=== PATIENT | male | born 1990 | race Caucasian/White ===

== ENCOUNTER 2020-11-27 16:25 | Emergency (ER) | payer OTHER, SELFPAY ==
--- NOTE | ~2020-11-27 | XR_ITS ---
EXAMINATION: XR CHEST CLINICAL INFORMATION: Covid+. CHest pressure. Covid Pneumonia? COMPARISON: None TECHNIQUE: Frontal view of the chest was obtained. FINDINGS: No significant abnormality is noted involving the heart, lungs, mediastinum, bony thorax or soft tissues. XR/XR chest 1V IMPRESSION: Unremarkable examination. Covid groundglass infiltrates can be quite subtle and not well seen on chest radiographs.
[2020-11-27 17:04] VITALS: BP 150/92; PULSE 113; RESP 16; TEMP 37.3; O2SAT 97; BMI 22.9
--- NOTE | 2020-11-27 17:11 | ED.GENADULT ---
HPI - General Adult General Chief complaint: General Medical Stated complaint: Covid +/Fever Time Seen by Provider: 11/27/20 17:23 History of Present Illness HPI narrative: Patient is a 30 male past medical history IV drug abuse presents to ED for chest pressure and body aches. Patient been positive for COVID for 4 days. Patient denies any coughing. Patient states fever. Patient states girlfriend also positive. Related Data Previous Rx's Medication Instructions Recorded azithromycin 250 mg tablet 250 mg PO DAILY 6 Days #6 tab 11/27/20 benzonatate 100 mg capsule 100 mg PO TID PRN #15 cap 11/27/20 (Tessaljanet Hahn) Allergies Allergy/AdvReac Type Severity Reaction Status Date / Time No Known Allergies Allergy Verified 11/27/20 17:21 Review of Systems Review of Systems: Yes all other systems are reviewed and are negative Constitutional: Constitutional: Reports as per HPI, Reports no additional constitutional complaints, Reports body ache(s) and Reports fever(s) Eyes: Eyes: Reports as per HPI and Reports no additional eye complaints ENT: Reports system reviewed and no additional complaints, except as documented and Reports as per HPI Cardiovascular: Cardiovascular: Reports as per HPI, Reports no additional cardiovascular complaints and Reports chest pain Respiratory: Respiratory: Reports as per HPI and Reports no additional respiratory complaints Gastrointestinal: Gastrointestinal: Reports as per HPI and Reports no additional gastrointestinal complaints Musculoskeletal: Musculoskeletal: Reports no additional musculoskeletal complaints and Reports as per HPI Integumentary/Breasts: Skin/Breast: Reports system reviewed and no additional complaints, except as docu and Reports as per HPI FOR[facility]LY [facility], [facility] Social History Social History Advance Directives: No Advance Directives Information Provided: No Physical Exam Vital Signs: Vital Signs: Last Vital Signs Temp 99.2 F 11/27/20 19:51 Pulse 84 11/27/20 19:51 Resp 16 11/27/20 19:51 BP 148/92 H 11/27/20 19:51 Pulse Ox 99 11/27/20 19:51 Body Mass Index 22.9 Const: General: cooperative, healthy appearing, comfortable, no acute distress, well developed, alert, awake and Physically active Orientation/consciousness: patient oriented x3 HENMT: Head: Yes normal to inspection, Yes No palpable skull fracture present, Yes normocephalic, Yes atraumatic and No abrasion Eyes: General: appearance normal, both eyes and all related structures Neck: Neck: Yes normal visual inspection, Yes full ROM, Yes no lymphadenopathy, Yes no meningeal signs, Yes trachea midline, Yes supple and No tender Chest: Chest palpation & inspection: normal inspection of the chest and normal palpation of entire chest wall Resp: Effort & Inspection: normal respiratory effort and able to speak in complete sentences Cardio: Jugular venous distension: no JVD Heart sounds: S1 normal heart sound present and S2 normal heart sound present GI: Inspection: Yes normal to inspection and No abdominal wall ecchymosis Palpation (GI): Soft to palpation, not firm, nontender, no guarding and not rigid : General: No CVA tenderness and Yes no CVA tenderness Back/Spine/Pelvis: Back: no CVA tenderness, No CVA tenderness and No back tenderness Skin: General skin exam: no rashes or lesions noted and elasticity normal Neuro: General: patient oriented x3, gait normal, no meningeal signs and CN's II-XI intact bilaterally Cranial nerves: Yes CN's II-XII intact bilaterally Extrem: General: Yes normal to inspection and Yes full ROM Psych: Appearance: grossly normal, well kempt and not disheveled Course Course Course Narrative: Patient O2 sat is normal lungs are clear but due to tachycardia and stating chest pressure will do x-ray and labs. Reevaluation(s) Reevaluation #1: Patient's D-dimer came back slightly elevated. Chest CTA to rule out PE was ordered due to patient stating chest pressure and COVID positive. Patient refused further IV access and refuse chest CTA to rule out PE. Patient informed of possibility of if there is PE but patient states he will return to the ED if he feels worse. Patient signed against medical advice knowing risks of . Time: 19:04 Medical Decision Making [facility] Narrative Medical decision making narrative: COVID positive Lab Data Result diagrams: 11/27/20 18:38 11/27/20 18:38 Labs: Lab Results 11/27/20 11/27/20 11/27/20 Range/Units 18:38 18:38 18:38 WBC 5.6 (4.8-10.8) X10*3/uL RBC 5.92 H (4.60-5.80) X10*6/uL Hgb 16.3 (14.0-18.0) g/dl Hct 49.6 (42-52) % MCV 83.8 (80-98) fL MCH 27.5 (27.0-33.0) pg MCHC 32.9 (31.0-36.0) g/dl RDW 14.7 (11.0-16.0) % Plt Count 153 L (160-400) X10*3/uL MPV 10.6 (9.4-12.4) fL Immature Gran % (Auto) 0.2 (0.0-0.4) % Neut % (Auto) 65.3 (45-73) % Lymph % (Auto) 27.8 (20-40) % Cooper % (Auto) 6.0 (2-11) % Eos % (Auto) 0.5 (0-4) % Baso % (Auto) 0.2 (0-2) % Lymph # (Auto) 1.6 (1.2-4.9) X10*3/uL Cooper # (Auto) 0.3 (0.1-1.2) X10*3/uL Eos # (Auto) 0.0 (0.0-0.4) X10*3/uL Baso # (Auto) 0.0 (0.0-0.2) X10*3/uL Abs Immat Gran (auto) 0.01 (0.00-0.03) X10*3/uL Absolute Neuts (auto) 3.7 (2.0-8.3) X10*3/uL Absolute Nucleated RBC 0.000 (0.0-0.012) X10*3/uL Nucleated RBC % (auto) 0.0 (0.0-0.2) /100WBC PT 11.0 (9.9-13.0) SEC INR 1.0 (0.9-1.1) APTT 34.6 (24.1-38.0) SEC D-Dimer NG/ML Sodium 139 (135-145) mmol/L Potassium 4.4 (3.3-5.1) mmol/L Chloride 105 (96-108) mmol/L Carbon Dioxide 24 (22-29) mmol/L Anion Gap 14 (12-20) BUN 8 L (9-16) mg/dL Creatinine 0.81 (0.5-1.4) mg/dL Estim Creat Clear Calc 136.8 Estimated GFR > 60 Random Glucose 90 (60-115) mg/dL Calcium 10.1 (8.4-10.2) mg/dL Ferritin 363 H (20-250) ng/mL Total Bilirubin 0.4 (0.0-1.0) mg/dL Direct Bilirubin < 0.2 (0.0-0.5) mg/dL AST 36 (5-37) U/L ALT 41 H (0-40) U/L Alkaline Phosphatase 63 (39-117) U/L Lactate Dehydrogenase 277 H (118-273) U/L Troponin I High Sens (<3.5-35.0) ng/L Total Protein 8.7 H (6.5-8.0) g/dL Albumin 4.6 (3.5-5.0) g/dL Procalcitonin ng/mL 11/27/20 11/27/20 11/27/20 Range/Units 18:38 18:38 18:38 WBC (4.8-10.8) X10*3/uL RBC (4.60-5.80) X10*6/uL Hgb (14.0-18.0) g/dl Hct (42-52) % MCV (80-98) fL MCH (27.0-33.0) pg MCHC (31.0-36.0) g/dl RDW (11.0-16.0) % Plt Count (160-400) X10*3/uL MPV (9.4-12.4) fL Immature Gran % (Auto) (0.0-0.4) % Neut % (Auto) (45-73) % Lymph % (Auto) (20-40) % Cooper % (Auto) (2-11) % Eos % (Auto) (0-4) % Baso % (Auto) (0-2) % Lymph # (Auto) (1.2-4.9) X10*3/uL Cooper # (Auto) (0.1-1.2) X10*3/uL Eos # (Auto) (0.0-0.4) X10*3/uL Baso # (Auto) (0.0-0.2) X10*3/uL Abs Immat Gran (auto) (0.00-0.03) X10*3/uL Absolute Neuts (auto) (2.0-8.3) X10*3/uL Absolute Nucleated RBC (0.0-0.012) X10*3/uL Nucleated RBC % (auto) (0.0-0.2) /100WBC PT (9.9-13.0) SEC INR (0.9-1.1) APTT (24.1-38.0) SEC D-Dimer 249 NG/ML Sodium (135-145) mmol/L Potassium (3.3-5.1) mmol/L Chloride (96-108) mmol/L Carbon Dioxide (22-29) mmol/L Anion Gap (12-20) BUN (9-16) mg/dL Creatinine (0.5-1.4) mg/dL Estim Creat Clear Calc Estimated GFR Random Glucose (60-115) mg/dL Calcium (8.4-10.2) mg/dL Ferritin (20-250) ng/mL Total Bilirubin (0.0-1.0) mg/dL Direct Bilirubin (0.0-0.5) mg/dL AST (5-37) U/L ALT (0-40) U/L Alkaline Phosphatase (39-117) U/L Lactate Dehydrogenase (118-273) U/L Troponin I High Sens < 3.5 (<3.5-35.0) ng/L Total Protein (6.5-8.0) g/dL Albumin (3.5-5.0) g/dL Procalcitonin 0.06 ng/mL ECG Data Interpretation: Normal sinus rhythm. Normal EKG. Ventricular rate 98. Pr interval 154. QRS 84. QTC 411. Negative STEMI Discharge Plan Discharge Clinical Impression: COVID Patient Disposition: Left Against Medical Advice Instructions: COVID-19 (Coronavirus Disease 2019) (ED) Additional Instructions: You were seen in the ED for COVID. Your refusing chest CT scan to rule out pulmonary embolus. Return to the ED immediately for any worsening chest pain, shortness of breath, dizziness, weakness, calf pain, leg swelling, coughing up blood, or any other concerning symptoms. Prescriptions: New benzonatate [Tessalon Perles] 100 mg capsule 100 mg PO TID PRN (Reason: cough) Qty: 15 RF: 0 azithromycin 250 mg tablet 250 mg PO DAILY 6 Days Qty: 6 RF: 0 Stand Alone Forms: Against Medical Advice Interventions: ED Discharge Assessment Last Done: 11/27/20 20:20 Discharge Date/Time: 11/27/20 20:22 Print Language: Thai
--- NOTE | 2020-11-27 17:23 | ECG_ITS ---
Test Reason : MEDICAL Blood Pressure : / mmHG Vent. Rate : 098 BPM Atrial Rate : 098 BPM P-R Int : 154 ms QRS Dur : 084 ms QT Int : 322 ms P-R-T Axes : 071 068 048 degrees QTc Int : 411 ms Normal sinus rhythm Normal ECG No previous ECGs available Referred By: Nikos Pollard Electronically Signed By:THOR FITZPATRICK
[2020-11-27 18:00] VITALS: BP 140/94; PULSE 84; RESP 16; TEMP 37.3; O2SAT 99
[2020-11-27 18:43] LABS: MANUAL DIFF FLAG NO
[2020-11-27] MEDS: Acetaminophen 325 MG TABLET 650 MG PO (18:43)
[2020-11-27 18:44] LABS: Basophils Percent Auto 0.2 % (0-2); Eosinophils Percent Auto 0.5 % (0-4); Hematocrit 49.6 % (42-52); Hemoglobin 16.3 g/dl (14.0-18.0); Imm Gran Abs Auto 0.01 X10*3/uL (0.00-0.03); Imm Gran Pct Auto 0.2 % (0.0-0.4); Lymphocytes Absolute Auto 1.6 X10*3/uL (1.2-4.9); Lymphocytes Percent Auto 27.8 % (20-40); Mean Corpuscular HGB Conc 32.9 g/dl (31.0-36.0); Mean Corpuscular Hemoglobin 27.5 pg (27.0-33.0); Mean Corpuscular Volume 83.8 fL (80-98); Mean Platelet Volume 10.6 fL (9.4-12.4); Monocytes Absolute Auto 0.3 X10*3/uL (0.1-1.2); Neutrophils Absolute Auto 3.7 X10*3/uL (2.0-8.3); Neutrophils Percent Auto 65.3 % (45-73); Platelet Count 153 X10*3/uL (160-400); Red Blood Count 5.92 X10*6/uL (4.60-5.80); Red Cell Distribution Width 14.7 % (11.0-16.0); White Blood Count 5.6 X10*3/uL (4.8-10.8)
[2020-11-27 18:48] VITALS: BP 151/78; PULSE 86; RESP 16; TEMP 36.9; O2SAT 99
[2020-11-27 18:52] LABS: D Dimer 249 NG/ML; Partial Thromboplastin Time 34.6 SEC (24.1-38.0)
[2020-11-27 19:01] LABS: Alanine Aminotransferase 41 U/L (0-40); Albumin Level 4.6 g/dL (3.5-5.0); Alkaline Phosphatase 63 U/L (39-117); Anion Gap 14 (12-20); Aspartate Amino Transferase 36 U/L (5-37); Bilirubin Direct < 0.2 mg/dL (0.0-0.5); Bilirubin Total 0.4 mg/dL (0.0-1.0); Blood Urea Nitrogen 8 mg/dL (9-16); Calcium 10.1 mg/dL (8.4-10.2); Carbon Dioxide 24 mmol/L (22-29); Chloride 105 mmol/L (96-108); Creatinine Clr Calc Pharmacy 136.8; Estimated Glomerular Filt Rate > 60; Glucose Random 90 mg/dL (60-115); Lactate Dehydrogenase 277 U/L (118-273); Potassium 4.4 mmol/L (3.3-5.1); Sodium 139 mmol/L (135-145); Total Protein 8.7 g/dL (6.5-8.0)
[2020-11-27 19:04] LABS: Troponin-I High Sensitivity < 3.5 ng/L (<3.5-35.0)
[2020-11-27 19:20] LABS: Ferritin 363 ng/mL (20-250)
[2020-11-27 19:37] LABS: Procalcitonin 0.06 ng/mL
[2020-11-27 19:51] VITALS: BP 148/92; PULSE 84; RESP 16; TEMP 37.3; O2SAT 99
== END 2020-11-27 20:22 | disposition left against medical advice (07) ==
PROVIDERS: Physician Assistant; Emergency Provider Emergency Medicine
DX: U07.1 COVID-19 (principal); R00.0 Tachycardia, unspecified; R50.9 Fever, unspecified; Z79.899 Other long term (current) drug therapy
CPT/HCPCS: 36415; 71045; 80053; 82248; 82728; 83615; 84145; 84484; 85025; 85379; 85610; 85730; 93005; 99284

== ENCOUNTER 2021-01-03 13:04 | Emergency (ER) | payer OTHER, SELFPAY ==
--- NOTE | 2021-01-03 | ECG_ITS ---
Test Reason : MEDICAL CLEARANCE Blood Pressure : / mmHG Vent. Rate : 081 BPM Atrial Rate : 081 BPM P-R Int : 170 ms QRS Dur : 094 ms QT Int : 372 ms P-R-T Axes : 042 020 040 degrees QTc Int : 432 ms Normal sinus rhythm Early repolarization Normal ECG No significant changes seen Referred By: Jono Zavala Electronically Signed By:IGNACIO CHI MD
[2021-01-03 13:13] VITALS: BP 126/79; PULSE 95; RESP 18; TEMP 36.8; O2SAT 97; BMI 22.9
--- NOTE | 2021-01-03 15:15 | MHC.RECOVRN ---
Briefly met with pt to discuss substance use. Pt reports heroin, 3+bundles, IV daily; occaisonal cocaine, IV; clonazepam, 6 mg daily, PO. Pt reports last heroin use at 0800 and last benzo use yesterday morning. Pt does not appear uncomfortable or in withdrawal at this time. Pt was last in [facility] treatment about 2 months ago at [facility]. Hx Subutex and methadone. Pt prefers methadone and would like to reengage with an OTP. Hx endocarditis x 3. Pt reports hearing voices and feeling like people are after him. Pt is homeless and has stayed all over [place], is originally from [place]. At this time, pt to be seen by ED provider. Will continue interview at a later time. Discussed with Mirta Gonzalez APRN, as well as CARE Team.
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
[2021-01-03] MEDS: clonazePAM 1 MG TABLET 2 MG PO ×2 (15:28→18:27)
[2021-01-03 16:09] LABS: Amphetamine Screen Urine Not Detected (Not Detect); Barbiturates, Urine Not Detected (Not Detect); Benzodiazepines Screen Urine Not Detected (Not Detect); Cannabinoid Screen Urine Not Detected (Not Detect); Cocaine Screen Urine POSITIVE (Not Detect); Fentanyl, urine POSITIVE (Not Detect); Opiate Screen Urine POSITIVE (Not Detect); Phencyclidine Screen Urine Not Detected (Not Detect)
[2021-01-03 16:12] LABS: COVID-19 Test Negative (Negative)
[2021-01-03 16:41] LABS: MANUAL DIFF FLAG NO
[2021-01-03 16:46] LABS: Basophils Percent Auto 0.5 % (0-2); Eosinophils Absolute Auto 0.2 X10*3/uL (0.0-0.4); Eosinophils Percent Auto 4.4 % (0-4); Hematocrit 36.3 % (42-52); Hemoglobin 12.3 g/dl (14.0-18.0); Imm Gran Abs Auto 0.01 X10*3/uL (0.00-0.03); Imm Gran Pct Auto 0.3 % (0.0-0.4); Lymphocytes Absolute Auto 1.6 X10*3/uL (1.2-4.9); Lymphocytes Percent Auto 43.9 % (20-40); Mean Corpuscular HGB Conc 33.9 g/dl (31.0-36.0); Mean Corpuscular Hemoglobin 28.2 pg (27.0-33.0); Mean Corpuscular Volume 83.3 fL (80-98); Mean Platelet Volume 11.2 fL (9.4-12.4); Monocytes Absolute Auto 0.4 X10*3/uL (0.1-1.2); Monocytes Percent Auto 10.1 % (2-11); Neutrophils Absolute Auto 1.5 X10*3/uL (2.0-8.3); Neutrophils Percent Auto 40.8 % (45-73); Red Blood Count 4.36 X10*6/uL (4.60-5.80); Red Cell Distribution Width 12.9 % (11.0-16.0); White Blood Count 3.7 X10*3/uL (4.8-10.8)
[2021-01-03 16:47] LABS: Platelet Count 98 X10*3/uL (160-400)
[2021-01-03 16:54] LABS: Ethanol < 10 mg/dL
[2021-01-03 16:57] LABS: Alanine Aminotransferase 69 U/L (0-40); Albumin Level 3.6 g/dL (3.5-5.0); Alkaline Phosphatase 64 U/L (39-117); Anion Gap 13 (12-20); Aspartate Amino Transferase 50 U/L (5-37); Bilirubin Total 0.3 mg/dL (0.0-1.0); Blood Urea Nitrogen 11 mg/dL (9-16); Carbon Dioxide 27 mmol/L (22-29); Chloride 106 mmol/L (96-108); Creatinine Clr Calc Pharmacy 136.8; Estimated Glomerular Filt Rate > 60; Glucose Random 105 mg/dL (60-115); Potassium 3.8 mmol/L (3.3-5.1); Sodium 142 mmol/L (135-145); Total Protein 6.8 g/dL (6.5-8.0)
--- NOTE | 2021-01-03 17:39 | PHA.MEDREC ---
Pharmacy Consult ? Medication Reconciliation Pharmacy has completed the medication reconciliation. Patient admitted to not taking any medications for a while. I contacted his pharmacy and they said the last thing he had filled was a 5 day supply of Gabapentin which was back in early November. Other than that medication, it had been months since his last fills.
--- NOTE | 2021-01-03 21:29 | MHC.CARE ---
CARE team evaluated pt. Disposition is for detox/EATS placement. Referral faxed to [facility] for review, will call to follow up on referral later this evening. Pt is agreeable to remain in ED to await placement on a voluntary basis and there is presently no level of risk for harm to self or others.
[2021-01-04 00:58] VITALS: BP 130/59; PULSE 83; RESP 16; TEMP 36.6; O2SAT 100
[2021-01-04] MEDS: methADONE HCl 20 MG/2 ML ORAL.CONC 10 MG PO ×2 (02:57→07:33)
[2021-01-04 03:00] VITALS: BP 126/60; PULSE 88; RESP 18; TEMP 36.7; O2SAT 99
--- NOTE | 2021-01-04 06:14 | PC.NURSE ---
Patient slept through the night, up once reported withdrawing received scheduled methadone 10 mg, per care team patient is EATS bed search, behavior appropriate, appetite good, medication compliant, will continue to monitor.
--- NOTE | 2021-01-04 07:08 | PC.NURSE ---
patient appears ot remain at rest at present with even unlabored breaths, patient appears in no distress
[2021-01-04 08:58] VITALS: BP 131/85; PULSE 79; RESP 14; TEMP 36.7; O2SAT 98
[2021-01-04] MEDS: clonazePAM 1 MG TABLET 2 MG PO (09:33)
[2021-01-04] MEDS: methADONE HCl 20 MG/2 ML ORAL.CONC 15 MG PO (10:46)
--- NOTE | 2021-01-04 11:41 | PC.NURSE ---
pt vomited a small amount on the floor. continues to vomit small amounts - offered Zofran, he refused. reports to want d/c because we are not medicating him what he needs, his gf already is getting medicated for her detox and we're not doing shit . CARE team notified.
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
--- NOTE | 2021-01-04 11:55 | PC.NURSE ---
Hood desired d/cCristhian from detox management over to see the pt, plan will be to d/c and follow up with detox lists in the community as self referral./
== END 2021-01-04 12:40 | disposition home or self-care (01) ==
PROVIDERS: Emergency Provider Emergency Medicine Emergency Medical Services
DX: F23 Brief psychotic disorder (principal); F11.20 Opioid dependence, uncomplicated; F13.10 Sedative, hypnotic or anxiolytic abuse, uncomplicated; F10.10 Alcohol abuse, uncomplicated; Y90.9 Presence of alcohol in blood, level not specified; F43.10 Post-traumatic stress disorder, unspecified; Z20.822 Contact with and (suspected) exposure to COVID-19
CPT/HCPCS: 36415; 80053; 80307; 82077; 85025; 87635; 93005; 99284

== ENCOUNTER 2021-01-04 18:40 | Emergency (ER) | payer OTHER, SELFPAY ==
[2021-01-04 19:17] VITALS: BP 114/76; PULSE 91; RESP 16; TEMP 36.9; O2SAT 97; BMI 22.9
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
--- NOTE | 2021-01-04 23:31 | ED_ITS ---
HPI - Alcohol General Chief Complaint: ETOH/Substance Use Stated Complaint: here for detox Time Seen by Provider: 01/04/21 23:30 History of Present Illness HPI narrative: Patient is a 30-year-old male with a history of alcohol and heroin abuse presented today with having hearing voices. Patient was just discharged from the hospital today. Patient denies any suicidal ideation at this time. Related Data Home Medications Medication Instructions Recorded Confirmed No Known Home Meds 01/03/21 01/03/21 Allergies Allergy/AdvReac Type Severity Reaction Status Date / Time naloxone Allergy Swelling Verified 01/03/21 13:13 Review of Systems Review of Systems: No chest pain or shortness breath no nausea no vomiting All systems reviewed otherwise negative Yes all other systems are reviewed and are negative [facility] Past Medical History Attestation statement: The following information was validated with the patient. Medical History ADHD Anxiety COVID-19 Depression Endocarditis Heroin abuse PTSD (post-traumatic stress disorder) Schizoaffective disorder Social History Social History Alcohol intake: current Patient Tobacco Use Status: Current everyday Tobacco user Use of substances other than those prescribed or required for medical reasons: Yes Substance Use Type: Heroin Substance Use Frequency: Daily Last Used Substance: Days (ago) Advance Directives: No Advance Directives Information Provided: Yes Physical Exam Vital Signs: Vital Signs: Last Vital Signs Temp 98.5 F 01/04/21 19:17 Pulse 91 01/04/21 19:17 Resp 16 01/04/21 19:17 BP 114/76 01/04/21 19:17 Pulse Ox 97 01/04/21 19:17 Body Mass Index 22.9 Appearance: Alert. Oriented X3. No acute distress. Eyes: Pupils equal, round and reactive to light. ENT: Pharynx normal. Neck: Normal inspection. Neck supple. No lymph nodes noted. No crepitus CVS: Normal heart rate and rhythm. Pulses normal. Normal S1 and S2 Respiratory: No respiratory distress. Breath sounds normal. No Wheezing. No rales Abdomen: Soft and nontender. No rigidity. No distention. good BS x4 Skin: Skin warm and dry. Normal skin color. Normal skin turgor. Extremities: No lower extremity edema. Neurovascular intact to all extremities. No Lacerations. No Rash Neuro: Oriented X 3. No motor deficit. No sensory deficit. Moving all extermities. No slurred speech MDM - Alcohol MDM Narrative Medical decision making narrative: Well-appearing of waiting [facility] evaluation. Patient in no distress. No suicidal homicidal thoughts. Patient was evaluated earlier today. Patient is seen by crisis. Few comfortable with discharge. Patient denies suicidal homicidal ideation. Positive history of recreational drug use. Did not want detox at this time. Patient actually was in the emergency department p rior. Even more discharge after discharge was arranged for him. Discharge Plan Discharge Clinical Impression: Narcotic addiction, Polysubstance abuse, Auditory hallucination Patient Disposition: Home, Self-Care Instructions: Narcotic Use Disorder (ED) Prescriptions: No Action No Known Home Meds RF: 0 Referrals: Jesús Ruffin [Other] - 2 days (Please stop using recreational drugs.)
[2021-01-05 00:42] LABS: COVID-19 Test Negative (Negative); IDNOW Serial# 9DD0AD1C
[2021-01-05 00:47] LABS: Amphetamine Screen Urine Not Detected (Not Detect); Barbiturates, Urine Not Detected (Not Detect); Benzodiazepines Screen Urine Not Detected (Not Detect); Cannabinoid Screen Urine Not Detected (Not Detect); Cocaine Screen Urine POSITIVE (Not Detect); Fentanyl, urine POSITIVE (Not Detect); Opiate Screen Urine POSITIVE (Not Detect); Phencyclidine Screen Urine Not Detected (Not Detect)
--- NOTE | 2021-01-05 02:26 | MHC.CARE ---
Pt presents to [facility] for the second time today seeking a detox admission. Per Cristhian from recovery team, pt was interested in detox earlier and Cristhian coordinated a ride for pt to go to [facility] for detox. Pt requested to obtain belongings from his girlfriend first who is admitted in the hospital and he then left the hospital. According to Cristhian he called pt several times in an attempt to get a hold of pt and get him to [facility], however pt did not answer. Pt took his girlfriends phone and debit card and she suspects he sold it. Pt re-presented to the hospital hours later stating he had a seizure witnessed by friends after discharge. Pt states he remembers passing out and then after he ran away from friends . Pt states he thinks the technical maintenance specialist are chasing him and is hearing voices , denies suicidal thoughts, harmful thoughts to self or others, and homicidal thoughts. Pt states last drink was yesterday, last heroin and benzo use was yesterday. Pt reports he lost his girlfriends card because he was running from the police . He requests to go to detox, denies SI. Pt does not appear to be responding to internal stimuli, presentation appears intact and he does not appear psychotic. Pt did not appear to be a reliable trial paralegal and stories were contradicting. He states he left the hospital earlier today because he felt technical maintenance specialist were chasing him. He then states he is homeless and cold and needs to stay here because he feels safe . Pt reported that he hears voices when using substances. Pt was d/c and Dr. Hodges agreed. pt was encouraged to call detox on his own. Pt was supported by the CARE team and phone numbers were provided to him.
== END 2021-01-05 00:55 | disposition home or self-care (01) ==
PROVIDERS: Emergency Provider Emergency Medicine Emergency Medical Services; PCP Internal Medicine
DX: R44.0 Auditory hallucinations (principal); F11.20 Opioid dependence, uncomplicated; F10.10 Alcohol abuse, uncomplicated; F41.9 Anxiety disorder, unspecified; F43.10 Post-traumatic stress disorder, unspecified; F25.9 Schizoaffective disorder, unspecified; Z20.822 Contact with and (suspected) exposure to COVID-19
CPT/HCPCS: 36415; 80307; 87635; 99285

== ENCOUNTER 2021-06-19 10:33 | Emergency (ER) | payer OTHER, SELFPAY | END 2021-06-19 11:53 | disposition left against medical advice (07) | LOC: HO.ED 11:53 | PROVIDERS: Emergency Provider Emergency Medicine | DX: L02.91 Cutaneous abscess, unspecified (principal) ==

== ENCOUNTER 2021-08-21 11:16 | Emergency (ER) | payer OTHER, SELFPAY ==
[2021-08-21 11:21] VITALS: BP 110/65; PULSE 78; RESP 18; TEMP 36.6; O2SAT 99; BMI 21.4
[2021-08-21 11:46] LABS: COVID-19 Test Negative (Negative); IDNOW Serial# 16C4AD1C
== END 2021-08-21 13:27 | disposition left against medical advice (07) ==
LOC: HO.ED 13:22
PROVIDERS: Emergency Provider Emergency Medicine
DX: R51.9 Headache, unspecified (principal); Z20.822 Contact with and (suspected) exposure to COVID-19
CPT/HCPCS: 87635; 99283

== ENCOUNTER 2021-09-04 14:32 | Emergency (ER) | payer OTHER, SELFPAY ==
[2021-09-04 15:07] VITALS: BP 103/70; PULSE 75; RESP 20; TEMP 37.2; O2SAT 98; BMI 25.1
--- NOTE | 2021-09-04 15:18 | ED_ITS ---
HPI - General Adult General Chief complaint: General Medical Stated complaint: medication Time Seen by Provider: 09/04/21 15:11 Source: patient Mode of arrival: ambulatory Limitations: no limitations History of Present Illness HPI narrative: 31 yo male with opioid use disorder on methadone who presents to the ER for methadone dose. He missed his dose today at the [facility]. He knew he was going to be late to the clinic so he called and the nurse unix manager provided him a last dose letter, stating he last got his 95 mg yesterday. He reports feeling okay. He states he is coming off of benzos. He denies any nausea, vomiting, diarrhea. No tremors or confusion. complaint: methadone dose Relieving factors: none Exacerbating factors: none Associated symptoms: denies other symptoms Treatments prior to arrival: none Related Data Home Medications Medication Instructions Recorded Confirmed No Known Home Meds 01/03/21 01/03/21 Allergies Allergy/AdvReac Type Severity Reaction Status Date / Time naloxone Allergy Swelling Verified 01/03/21 13:13 Review of Systems Review of Systems: Constitutional: No Fever, No Chills Cardiovascular: No Chest Pain, No SOB Gastrointestinal: No Nausea, No Vomiting, No Diarrhea, No abdominal Pain Musculoskeletal: No joint pain, No Myalgias Skin: No Skin Lesions, No rash Neuro: No Weakness, No Dizziness, No Headache Psych: No Anxiety/Panic, No Depression PMFSH Past Medical History Medical History ADHD Anxiety COVID-19 Depression Endocarditis Heroin abuse PTSD (post-traumatic stress disorder) Schizoaffective disorder Social History Social History Alcohol intake: current Patient Tobacco Use Status: Current everyday Tobacco user Substance Use Type: Heroin Advance Directives: No Advance Directives Information Provided: No Physical Exam ED Vital Signs: Vital Signs - 24 hr 09/04/21 15:07 Temperature 99 F Pulse Rate 75 Respiratory Rate 20 Blood Pressure 103/70 Pulse Oximetry 98 Oxygen Delivery Method Room Air BMI result Body Mass Index 25.1 Appearance: Alert. Oriented X3. No acute distress. HEENT: normal external inspection Neck: Normal inspection. Neck supple. CVS: Normal heart rate and rhythm. Pulses normal. Respiratory: No respiratory distress. Breath sounds normal. Abdomen: Soft and nontender. +BS x4 Skin: Skin warm and dry. Normal skin color. Normal skin turgor. No rashes. Extremities: No lower extremity edema. Neuro: Oriented X 3. Grossly normal, nonfocal Course Course Course Narrative: 31 yo male presenting for methadone dose. He arrives with his last does letter from the [facility] signed by the nursing techn. Will dose his 95 mg now. He has been counseled and is stable for discharge home. Discharge Plan Discharge Clinical Impression: Opioid use disorder Patient Disposition: Home, Self-Care Instructions: Opioid Use Disorder (ED) Additional Instructions: Follow up with the Meth[facility]one Clinic tomorrow Prescriptions: No Action No Known Home Meds Interventions: ED Discharge Assessment Last Done: 09/04/21 16:25 Discharge Date/Time: 09/04/21 16:25
--- NOTE | 2021-09-04 15:31 | PC.NURSE ---
PT PRESENTED WITH DOCUMENTATION OF LAST DOSE FROM [facility] OPIOID USE DISORDER PROGRAM. DOSE OF 95 MG CONFIRMED GIVEN YESTERDAY OF METHADONE. CONFIRMED BY DARIELA MCALLISTER RN STOCK FEEDER.
[2021-09-04] MEDS: methADONE HCl 20 MG/2 ML ORAL.CONC 95 MG PO (16:06)
== END 2021-09-04 16:25 | disposition home or self-care (01) ==
PROVIDERS: Emergency Provider Emergency Medicine
DX: F11.29 Opioid dependence with unspecified opioid-induced disorder (principal); F17.200 Nicotine dependence, unspecified, uncomplicated; Z71.6 Tobacco abuse counseling; Z71.51 Drug abuse counseling and surveillance of drug abuser
CPT/HCPCS: 99283

== ENCOUNTER 2022-03-05 18:13 | Emergency (ER) | payer OTHER, SELFPAY ==
[2022-03-05 18:35] VITALS: BP 120/74; PULSE 78
[2022-03-05 19:52] VITALS: BP 99/50; PULSE 74; RESP 12; O2SAT 100; BMI 26.5
--- NOTE | 2022-03-05 20:59 | MHC.RECOVSUP ---
Reason consult:OPI o? Current location:ED06H? o? Identified substance use concern:? -? Seeking ATS (detox) -? Support ? Intervention: o? ATS bed search started/completed/in process o? Harm reduction discussion ? Plan: o? Bed search in progress to o? Follow up tomorrow? ? Additional information:RC met with pt, started bed search, successfully completed intake with Connie Philippe , referral sent over. Please follow up!
--- NOTE | 2022-03-05 21:45 | ED_ITS ---
HPI - Overdose General Chief Complaint: ETOH/Substance Use Stated Complaint: WANTS DETOX PER EMS Time Seen by Provider: 03/05/22 19:05 Source: patient and EMS Mode of arrival: EMS Limitations: no limitations History of Present Illness HPI Narrative: Patient comes to the emergency room seeking detox for benzos the patient states that he has been taking Xanax 2 mg. Patient is suicidal homicidal ideation. Related Data Home Medications Medication Instructions Recorded Confirmed No Known Home Meds 01/03/21 01/03/21 Allergies Allergy/AdvReac Type Severity Reaction Status Date / Time naloxone Allergy Swelling Verified 01/03/21 13:13 Review of Systems Review of Systems: Constitutional : No Weight loss, No Fever, No Chills, No Night Sweats, No Fatigue, No Malaise ENT/Mouth : No Hearing loss, No Ear Pain, No Nasal Congestion, No Sinus Pain, No Hoarseness, No sore throat, No Rhinorrhea, No Swallowing Difficulty Eyes: No Eye Pain, No Swelling, No Redness, No Foreign Body, No Discharge, No Vision Changes Cardiovascular : No Chest Pain, No SOB, No Dyspnea on Exertion, No Orthopnea, No Edema, No Palpitations Respiratory : No Cough, No Sputum, No Wheezing, No Smoke Exposure, No Dyspnea Gastrointestinal : No Nausea, No Vomiting, No Diarrhea, No Constipation, No abdominal Pain, No Hematochezia, No Melena Genitourinary : no irregular bleeding, No Dysuria, No Urinary Frequency, No Hematuria, No Urinary Incontinence, No Urgency, No Flank Pain, No Urinary Flow Changes, No Hesitancy Musculoskeletal : No joint pain, No Myalgias, No Joint Swelling Skin : No Skin Lesions, No rash Neuro : No Weakness, No Numbness, No Paresthesias, No Loss of Consciousness, No Dizziness, No Headache Psych : No Anxiety/Panic, No Depression, No SI/HI/AH/VH, admits to addiction to benzos Heme/Lymph: No Bruising, No Bleeding,No Lymphadenopathy Endocrine : No Polyuria, No Polydipsia, No Temperature Intolerance PMF Past Medical History Medical History ADHD Anxiety COVID-19 Depression Endocarditis Heroin abuse PTSD (post-traumatic stress disorder) Schizoaffective disorder Social History Social History Alcohol intake: current Patient Tobacco Use Status: Current everyday Tobacco user Substance Use Type: Heroin Advance Directives: No Advance Directives Information Provided: No Physical Exam Vital Signs: Vital Signs: Last Vital Signs Pulse 74 03/05/22 19:52 Resp 12 03/05/22 19:52 BP 99/50 L 03/05/22 19:52 Pulse Ox 100 03/05/22 19:52 O2 Del Method 03/05/22 19:52 BMI result Body Mass Index 26.5 Const: Other: Appearance: Alert. Oriented X3. No acute distress. Very somnolent but arousable Eyes: Pupils equal, round and reactive to light. ENT: Pharynx normal. Neck: Normal inspection. Neck supple. No lymph nodes noted. No crepitus CVS: Normal heart rate and rhythm. Pulses normal. Normal S1 and S2 Respiratory: No respiratory distress. Breath sounds normal. No Wheezing. No rales Abdomen: Soft and nontender. No rigidity. No distention. Skin: Skin warm and dry. Normal skin color. Normal skin turgor. Extremities: No lower extremity edema. No Lacerations. No Rash Neuro: Oriented X 3. No motor deficit. No sensory deficit. Moving all extremities. No slurred speech. CN 2 through 12 grossly intact Psych: calm, cooperative, normal affect Course Course Course Narrative: Our catalyst recovery operator spoke with the patient, patient is scheduled to go to [facility] approximately at 14 30 Of note, the catalyst recovery operator informed me that the patient requested that the catalyst recovery operator sneaks dope in the emergency room while he is waiting to be seen. Patient is not suicidal homicidal. Patient wishes to be discharged before his appointment at [facility], he may be discharged Physician observation started at 22:00 Discharge Plan Discharge Clinical Impression: Benzodiazepine abuse Patient Disposition: Still a Patient Prescriptions: No Action No Known Home Meds Interventions: [place]-Suicide Risk Severity Scale Last Done: 03/05/22 19:55
--- NOTE | 2022-03-05 22:03 | MHC.CARE ---
Pt accepted to [facility] for admission on 03/06at 2:15pm
[2022-03-05 23:51] VITALS: RESP 16
[2022-03-06 02:29] VITALS: RESP 14
--- NOTE | 2022-03-06 02:30 | PC.NURSE ---
Pt sleeping in no apparent distress. Breaths are even and unlabored with equal chest rises. Will continue to monitor.
[2022-03-06 03:29] VITALS: RESP 14
[2022-03-06 05:58] VITALS: RESP 14
--- NOTE | 2022-03-06 06:24 | PC.NURSE ---
Pt requesting Methadone. Reports being on Methadone 130mg from the [facility]. T/W called the [facility] to verify dosage but they do not open until 9am. Pt aware of plan of care.
[2022-03-06 07:38] VITALS: BP 132/76; PULSE 66; RESP 14; TEMP 36.8; O2SAT 99
--- NOTE | 2022-03-06 09:11 | PC.NURSE ---
pt is adamant about leaving, md at bedside. pt denies any si/hi . pt to be d/c home after methadone verification and methadone given to pt.
--- NOTE | 2022-03-06 09:15 | PC.NURSE ---
CALLED [facility] M[facility]ADONE [facility]. PT HAS NOT BEEN DOSED SINCE 02/26 @127MG. THE NURSE CONTACTED STATES HE WOULD BE REDUCED 40% IF HE WAS TO RETURN TO THE CLINIC. DR FARMER WAS MADE AWARE. PT LEFT THE ED. SPOKE WITH DIANNA HUSAIN
== END 2022-03-06 09:25 | disposition home or self-care (01) ==
PROVIDERS: Emergency Provider Emergency Medicine
DX: F13.10 Sedative, hypnotic or anxiolytic abuse, uncomplicated (principal); F17.210 Nicotine dependence, cigarettes, uncomplicated; Z71.6 Tobacco abuse counseling; Z79.899 Other long term (current) drug therapy
CPT/HCPCS: 99284

== ENCOUNTER 2022-03-06 11:31 | Emergency (ER) | payer OTHER, SELFPAY ==
[2022-03-06 12:17] VITALS: BP 132/77; PULSE 68; RESP 16; TEMP 37.1; O2SAT 98; BMI 25.8
--- NOTE | 2022-03-06 12:17 | ED_ITS ---
HPI - URI/Sore Throat General Chief Complaint: Upper Respiratory Symptoms Stated Complaint: COVID symptoms Time Seen by Provider: 03/06/22 12:22 Source: patient Mode of arrival: ambulatory Limitations: no limitations History of Present Illness HPI Narrative: Patient is a 31-year-old male presents to emergency department for evaluation of cough, rhinorrhea, body aches, tactile fevers, headache. Symptom onset 4 days ago. Denies dizziness, lightheadedness, vision changes, neck pain, neck stiffness, chest pain, shortness of breath, nausea, vomiting, abdominal pain. Related Data Home Medications Medication Instructions Recorded Confirmed No Known Home Meds 01/03/21 01/03/21 Allergies Allergy/AdvReac Type Severity Reaction Status Date / Time No Known Allergies Allergy Verified 03/06/22 12:20 Review of Systems Review of Systems: Constitutional: Positive tactile fever. No chills. No weakness. Positive fatigue. Positive body aches ENT/ Mouth: No Ear Pain, positive Nasal Congestion, no sore throat, positive Rhinorrhea, No Swallowing Difficulty Skin: No rash or itching. Cardiovascular: No chest pain. No palpitations. Respiratory: No shortness of breath. Positive cough. No sputum production. Gastrointestinal: No nausea. No vomiting. No diarrhea. No abdominal pain. Genitourinary: No burning micturition. No urinary frequency. Neurologic: Positive headache. No dizziness. No syncope. No numbness or tingling in the extremities. Musculoskeletal: No muscle pain. No back pain. No joint pain or stiffness. Yes all other systems are reviewed and are negative PMFSH Past Medical History Attestation statement: The following information was validated with the patient. Source: old records reviewed Medical History ADHD Anxiety COVID-19 Depression Endocarditis Heroin abuse PTSD (post-traumatic stress disorder) Schizoaffective disorder Social History Social History Alcohol intake: current Alcohol intake frequency: does not drink Patient Tobacco Use Status: Current everyday Tobacco user Substance Use Type: Heroin, Opiates and Prescription Drugs Advance Directives: No Advance Directives Information Provided: No Physical Exam Vital Signs: Vital Signs: Last Vital Signs Temp 98.8 F 03/06/22 12:17 Pulse 68 03/06/22 12:17 Resp 16 03/06/22 12:17 BP 132/77 03/06/22 12:17 Pulse Ox 98 03/06/22 12:17 O2 Del Method 03/06/22 12:17 BMI result Body Mass Index 25.8 Appearance: Alert.?Oriented to person, place and time. No acute distress.?Normal affect. Eyes: Pupils equal, round and reactive to light.? ENT: TM normal bilaterally. Pharynx normal.?? Neck: Normal inspection.? Neck supple.??No cervical adenopathy CVS: Heart sounds normal. Normal heart rate and rhythm.? Pulses normal.?? Respiratory: No respiratory distress.? Lung sounds clear to auscultation bilaterally?? Abdomen: Soft and non-tender. Normoactive bowel sounds. Skin: Skin warm and dry.? Normal skin color.? ? Extremities: No lower extremity edema.? Neuro: Moves all extremities spontaneously. Sensation intact bilaterally. No mo tor deficits. Ambulates with normal steady gait. Course Course Course Narrative: Patient is a 31-year-old male, presenting for evaluation of upper respiratory symptoms. COVID-19 testing negative. Influenza testing negative. RSV testing negative. Suspect upper respiratory viral infection as etiology for symptoms at this time. Though he is having myalgias/headache, no signs of severe illness, no meningismus, no nuchal rigidity. Well-appearing, nontoxic, afebrile, no tachycardia or tachypnea/hypoxia. Speaking clear full sentences, ambulatory with steady gait. At this time history and physical exam not consistent with ACS/PE/pneumonia. Discussed conservative treatment including rest, hydration, Tylenol/ibuprofen as needed for fever and body aches, saline nasal spray, humidifier, [id number] cold medication. Advised to follow-up with primary care provider as needed, discussed reasons to return back to the emergency department. All questions were answered. Patient discharged home in stable condition. Medical Decision Making Lab Data Labs: Lab Results 03/06/22 Range/Units 12:24 Influenza Type A (PCR) NEGATIVE (Negative) Influenza Type B (PCR) NEGATIVE (Negative) RSV RNA Qual (PCR) NEGATIVE (Negative) SARS-CoV-2 RNA (RT-PCR) NEGATIVE (Negative) Discharge Plan Discharge Clinical Impression: Upper respiratory infection Patient Disposition: Home, Self-Care Instructions: Upper Respiratory Infection (ED) Additional Instructions: Be sure to rest, stay well hydrated drinking plenty of fluids, eat small frequent meals. Tylenol/ibuprofen can be used as needed for fever/pain. [id number] cold medications may be helpful as well for symptoms. Saline nasal spray, humidifier may be helpful for nasal congestion. You may return to the emergency department with any new or worsening symptoms or concerns. Follow-up with your primary care provider as needed. Prescriptions: No Action No Known Home Meds Referrals: Physician,None [Primary Care Provider] - Interventions: ED Discharge Assessment Last Done: 03/06/22 12:28 Discharge Date/Time: 03/06/22 14:12
[2022-03-06 13:13] LABS: Influenza A PCR NEGATIVE (Negative); Influenza B PCR NEGATIVE (Negative); Resp Syncy Virus RNA Qual PCR NEGATIVE (Negative); SARS COV2 PCR INHOUSE NEGATIVE (Negative)
== END 2022-03-06 14:12 | disposition home or self-care (01) ==
PROVIDERS: Nurse Practitioner Family; Emergency Provider Emergency Medicine Emergency Medical Services
DX: J06.9 Acute upper respiratory infection, unspecified (principal); R05.9 Cough, unspecified; Z20.822 Contact with and (suspected) exposure to COVID-19
CPT/HCPCS: 0241U; 99282; 99283

== ENCOUNTER 2022-04-29 11:49 | Emergency (ER) | payer OTHER, SELFPAY ==
[2022-04-29 12:06] VITALS: BP 120/81; PULSE 64; RESP 16; TEMP 36.8; O2SAT 98; BMI 23.6
--- NOTE | 2022-04-29 12:07 | ED.GENADULT ---
HPI - General Adult General Chief complaint: General Medical Stated complaint: Needs methadone dose Time Seen by Provider: 04/29/22 12:08 Source: patient Mode of arrival: ambulatory Limitations: no limitations History of Present Illness HPI narrative: 31-year-old male currently on 70 mg of methadone presenting to the ER with complaints of needing his methadone dose for today. His last dose was yesterday he brought in his last dose letter to verify this. He tried to get into a detox center [facility] this morning therefore he was there at 06:30 in the morning with his girlfriend and waited there for hours and they told him they did not have any beds and at that point he had already missed his methadone appointment. He reports he has been using some drugs. Last use earlier to arrival. He denies any other symptoms. MD complaint: Needing methadone dosing Onset (ago): day(s) (For today last dose yesterday) Related Data Home Medications Medication Instructions Recorded Confirmed No Known Home Meds 01/03/21 01/03/21 Allergies Allergy/AdvReac Type Severity Reaction Status Date / Time No Known Allergies Allergy Verified 03/06/22 12:20 Review of Systems Review of Systems: Constitutional : No Weight loss, No Fever, No Chills, No Night Sweats, No Fatigue, No Malaise ENT/Mouth : No Hearing loss, No Ear Pain, No Nasal Congestion, No Sinus Pain, No Hoarseness, No sore throat, No Rhinorrhea, No Swallowing Difficulty Eyes: No Eye Pain, No Swelling, No Redness, No Foreign Body, No Discharge, No Vision Changes Cardiovascular : No Chest Pain, No SOB, No Dyspnea on Exertion, No Orthopnea, No Edema, No Palpitations Respiratory : No Cough, No Sputum, No Wheezing, No Smoke Exposure, No Dyspnea Gastrointestinal : No Nausea, No Vomiting, No Diarrhea, No Constipation, No abdominal Pain, No Hematochezia, No Melena Genitourinary : no irregular bleeding, No Dysuria, No Urinary Frequency, No Hematuria, No Urinary Incontinence, No Urgency, No Flank Pain, No Urinary Flow Changes, No Hesitancy Musculoskeletal : No joint pain, No Myalgias, No Joint Swelling Skin : No Skin Lesions, No rash Neuro : No Weakness, No Numbness, No Paresthesias, No Loss of Consciousness, No Dizziness, No Headache Psych : No Anxiety/Panic, No Depression, No SI/HI/AH/VH, No Social Issues, Heme/Lymph: No Bruising, No Bleeding,No Lymphadenopathy Endocrine : No Polyuria, No Polydipsia, No Temperature Intolerance Yes all other systems are reviewed and are negative [facility] Past Medical History Attestation statement: The following information was validated with the patient. Source: old records reviewed and nursing notes reviewed Medical History ADHD Anxiety COVID-19 Depression Endocarditis Heroin abuse PTSD (post-traumatic stress disorder) Schizoaffective disorder Social History Social History Alcohol intake: current Alcohol intake frequency: does not drink Patient Tobacco Use Status: Current everyday Tobacco user Substance Use Type: Heroin, Opiates and Prescription Drugs Physical Exam ED Vital Signs: Vital Signs - 24 hr 04/29/22 12:06 Temperature 98.2 F Pulse Rate 64 Respiratory Rate 16 Blood Pressure 120/81 Pulse Oximetry 98 Oxygen Delivery Method Room Air BMI result Body Mass Index 23.6 Vital signs have been reviewed and all within normal limits Appearance: Alert. Oriented X3. No acute distress. Head: Normal external exam. Normocephalic. Eyes: PERRLA. EOMI. Conjunctiva and sclera normal. Eyelids normal. ENT: Pharynx normal. Uvula midline. Moist mucous membranes. No trismus noted. No drooling noted. No muffled voice noted. Neck: Normal inspection. Neck supple. FROM. No adenopathy. No meningeal signs. CVS: Normal heart rate and rhythm. Heart sound normal. No murmurs noted. Pulses normal throughout. Respiratory: No respiratory distress. Painless inspiration. Breath sounds normal. No wheezes/rales/rhonchi noted. Chest nontender. No accessory muscle usage noted or decreased air movement noted. Back: Full range of motion noted. Skin: Skin warm and dry. Normal skin color. Normal skin turgor. No rashes/lesions/lacerations noted. Extremities: Extremities exhibit normal range of motion. Extremities nontender. Neuro: Oriented X 3. No motor deficit. No sensory deficit. Reflexes normal. Normal steady gait. CN's II-XII intact bilaterally? Course Course Course Narrative: Will give the patient his 70 mg methadone he provided verification of his last dose letter he brought with him. He denies any other symptoms. Denies any SI or HI or auditory visual hallucinations or thoughts of self-injury. Reports he will go to [facility] again tomorrow. Instructed to return if any new or worsening symptoms to follow up with primary care provider and to go to his methadone dose tomorrow before he goes to [facility]. Patient understands agrees with this plan. Discharge Plan Discharge Clinical Impression: Methadone dependence Patient Disposition: Home, Self-Care Additional Instructions: You received 70 mg of methadone today on 04/29/2022. Go to ER methadone clinic tomorrow before you go to [facility]. Return if any new or worsening symptoms. Follow up with her primary care provider. Prescriptions: No Action No Known Home Meds Referrals: Physician,None [Primary Care Provider] - 1 day (your pcp/methadone clinic tomorrow )
[2022-04-29] MEDS: methADONE HCl 20 MG/2 ML ORAL.CONC 70 MG PO (12:30)
== END 2022-04-29 12:40 | disposition home or self-care (01) ==
PROVIDERS: Emergency Provider Emergency Medicine Emergency Medical Services
DX: F11.21 Opioid dependence, in remission (principal); F17.210 Nicotine dependence, cigarettes, uncomplicated; Z71.6 Tobacco abuse counseling
CPT/HCPCS: 99282